=== PATIENT | male | born 1980 | race Caucasian/White ===

== ENCOUNTER 2019-02-17 11:16 | Emergency (ER) | payer BC, MEDICAID ==
[2019-02-17] MEDS ORDERED: Ondansetron 4 MG/2 ML SDV IM ONE (11:28)
--- NOTE | 2019-02-17 11:35 | EDM.PDOC ---
ED HPI GENERAL MEDICAL PROBLEM - General Chief Complaint: Gastrointestinal Problem Stated Complaint: FLU Time Seen by Provider: 02/17/19 11:22 - History of Present Illness INITIAL COMMENTS - FREE TEXT/NARRATIVE: HISTORY AND PHYSICAL: History of present illness: Patient's 38-year-old white male presents with concern of nausea and vomiting he denies fever chills denies diarrhea denies chest or abdominal pain. Review of systems: As per history of present illness and below otherwise all systems reviewed and negative. Past medical history: As per history of present illness and as reviewed below otherwise noncontributory. Surgical history: As per history of present illness and as reviewed below otherwise noncontributory. Social history: No reported history of drug or alcohol abuse. Family history: As per history of present illness and as reviewed below otherwise noncontributory. Physical exam: HEENT: Atraumatic, normocephalic, pupils reactive, negative for conjunctival pallor or scleral icterus, mucous membranes moist, throat clear, neck supple, nontender, trachea midline. Lungs: Clear to auscultation, breath sounds equal bilaterally, chest nontender. Heart: S1S2, regular, negative for clicks, rubs, or JVD. Abdomen: Soft, nondistended, nontender. Negative for masses or hepatosplenomegaly. Negative for costovertebral tenderness. Pelvis: Stable nontender. Genitourinary: Deferred. Rectal: Deferred. Extremities: Atraumatic, negative for cords or calf pain. Neurovascular unremarkable. Neuro: Awake, alert, oriented. Cranial nerves II through XII unremarkable. Cerebellum unremarkable. Motor and sensory unremarkable throughout. Exam nonfocal. Diagnostics: Deferred Therapeutics: Zofran 4 mg IM Impression: #1 vomiting #2 gastritis Definitive disposition and diagnosis as appropriate pending reevaluation and review of above. - Related Data Allergies Allergy/AdvReac Type Severity Reaction Status Date / Time Penicillins Allergy Rash Verified 02/17/19 11:26 Home Meds: Home Meds . [No Known Home Meds] 02/17/19 [History] Past Medical History - Infectious Disease History Infectious Disease History: Reports: None - Past Surgical History GI Surgical History: Reports: Other (See Below) Other GI Surgeries/Procedures: patient states he has had a gastro resection Social & Family History - Family History Family Medical History: Noncontributory - Tobacco Use Smoking Status *Q: Current Every Day Smoker Years of Tobacco use: 25 Packs/Tins Daily: 0.5 - Recreational Drug Use Recreational Drug Use: No ED ROS GENERAL - Review of Systems Review Of Systems: ROS reveals no pertinent complaints other than HPI. ED EXAM, GENERAL - Physical Exam Exam: See Below (See dictation) Course - Vital Signs Last Recorded V/S: Last Vital Signs Temp 35.9 C 02/17/19 11:26 Pulse 92 02/17/19 11:26 Resp 18 02/17/19 11:26 BP 147/94 H 02/17/19 11:26 Pulse Ox 95 02/17/19 11:26 - Orders/Labs/Meds Meds: Medications Discontinued Medications Generic Name Dose Route Start Last Admin Trade Name Freq PRN Reason Stop Dose Admin Ondansetron HCl 4 mg 02/17/19 11:28 Zofran IM 02/17/19 11:29 ONETIME ONE Departure - Departure Time of Disposition: 11:34 Disposition: Home, Self-Care 01 Condition: Good Clinical Impression: Vomiting, Gastritis - Discharge Information Referrals: PCP,Unknown [Primary Care Provider] - Additional Instructions: The following information is given to patients seen in the emergency department who are being discharged to home. This information is to outline your options for follow-up care. We provide all patients seen in our emergency department with a follow-up referral. The need for follow-up, as well as the timing and circumstances, are variable depending upon the specifics of your emergency department visit. If you don't have a primary care physician on staff, we will provide you with a referral. We always advise you to contact your personal physician following an emergency department visit to inform them of the circumstance of the visit and for follow-up with them and/or the need for any referrals to a consulting specialist. The emergency department will also refer you to a specialist when appropriate. This referral assures that you have the opportunity for followup care with a specialist. All of these measure are taken in an effort to provide you with optimal care, which includes your followup. Under all circumstances we always encourage you to contact your private physician who remains a resource for coordinating your care. When calling for followup care, please make the office aware that this follow-up is from your recent emergency room visit. If for any reason you are refused follow-up, please contact the [facility] emergency department at and asked to speak to the emergency department charge nurse. [facility] Special[facility] - General Surgery Professional Building [address] [place] [address], [address] [place] [address] [employer]rdarian Protonix as prescribed follow-up Gen. surgery WelChol schedule routine appointment and return as needed as discussed
== END 2019-02-17 12:00 | disposition home or self-care (01) ==
LOC: MW.ED 11:16
DX: K29.70 Gastritis, unspecified, without bleeding (principal); F17.210 Nicotine dependence, cigarettes, uncomplicated; Z88.0 Allergy status to penicillin
CPT/HCPCS: 96372; 99283; J2405

== ENCOUNTER 2020-01-18 12:28 | Emergency (ER) | payer SELFPAY ==
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
[2020-01-18] MEDS ORDERED: Sodium Chloride 0.9% 10 ML Syringe FLUSH PRN (12:58)
[2020-01-18] MEDS ORDERED: Sodium Chloride 0.9% 1,000 ML IV ONE (12:58)
[2020-01-18] MEDS ORDERED: Sodium Chloride 0.9% 2.5 ML Syringe FLUSH PRN (12:58)
[2020-01-18 13:47] LABS: BLOOD UREA NITROGEN,BUN 17 mg/dL (7.0-18.0); CARBON DIOXIDE,CO2 27.9 mmol/L (21.0-32.0); CHLORIDE,CL 104 mmol/L (98-107); GLUCOSE RANDOM 98 mg/dL (74-106); LIPASE 69 U/L (73-393); POTASSIUM,K 4.2 mmol/L (3.5-5.1); SODIUM,NA 140 mmol/L (136-148)
--- NOTE | 2020-01-18 15:03 | US ---
Limited abdominal ultrasound: Multiple real-time images of the upper right abdomen were obtained. Comparison: No previous study. Technologist's note: Gallbladder poorly visualized due to fatty liver and patient body habitus Liver shows diffuse increased echoes most likely due to fatty infiltration. No discrete focal abnormality is appreciated within the liver. Right kidney shows no hydronephrosis or discrete mass. Right kidney has a length of 12.8 cm. Visualized portions of the pancreas are unremarkable. Gallbladder not well seen, no gross gallstones are noted. No definite biliary duct dilatation is seen. Impression: 1. Fatty infiltration is felt to be present within the liver. 2. Poorly seen gallbladder as noted above. No gross gallstones or biliary duct dilatation is seen. 3. No additional abnormality is appreciated on right upper quadrant abdominal ultrasound. Diagnostic code #2 This report was dictated in [place] Standard Time
== END 2020-01-18 15:22 | disposition home or self-care (01) ==
LOC: MW.ED 12:28
DX: R10.11 Right upper quadrant pain (principal); Z88.0 Allergy status to penicillin; F17.210 Nicotine dependence, cigarettes, uncomplicated
CPT/HCPCS: 36415; 76705; 80053; 83690; 84484; 85025; 93005; 96360; 99284; J7030

== ENCOUNTER 2020-01-22 14:00 | Emergency (ER) | payer BC ==
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
--- NOTE | 2020-01-22 15:25 | CT ---
CT lumbar spine Technique: Multiple axial sections through the lumbar spine were obtained. Study was obtained from above the T11-12 disc through the L5-S1 disc. Reconstructed coronal and sagittal images were obtained. Findings: Vertebral body heights and disc spaces are maintained. 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 Small bony density is seen on the left side slightly projecting into the central canal. No spondylolisthesis seen at this time at L5-S1. No acute fracture is appreciated. Posterior disks are fairly well preserved. No focal disc herniation is seen. Neural foramina are felt to be patent where the nerve roots exit. Impression: 1. Spondylolytic defects at L5-S1. 2. 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 3. Nothing acute is seen. Note: If better evaluation of the disks are needed, MRI can then be considered. Diagnostic code #2 This report was dictated in [place] Standard Time
[2020-01-22] MEDS ORDERED: Ketorolac 60 MG/2 ML SDV IM ONE (15:38)
== END 2020-01-22 17:25 | disposition home or self-care (01) ==
LOC: MW.ED 14:00
DX: M54.5 Low back pain (principal); F17.210 Nicotine dependence, cigarettes, uncomplicated; Z88.0 Allergy status to penicillin
CPT/HCPCS: 72131; 96372; 99283; J1885